=== PATIENT | female | born 1965 | race Two or more races ===

== ENCOUNTER 2017-04-10 08:53 | Emergency (ER) | payer OTHER ==
[~2017-04-10] VITALS: Ht 152.4 cm; Wt 61.2 kg
[2017-04-10] MEDS ORDERED: NKM (09:01)
[2017-04-10 09:12] VITALS: BP 153/83
[2017-04-10] MEDS ORDERED: Tylenol #3 tab (300mg/30mg) ORAL ONE (09:45)
[2017-04-10] MEDS ORDERED: TYLENOL EXTRA500 MG ORAL (10:19)
[2017-04-10 10:37] VITALS: BP 144/78
--- NOTE | 2017-04-10 10:44 | Diagnostic Imaging Report ---
Indications: hip pain Findings: Two views of the left hip were obtained. No acute fracture is demonstrated. Alignment of the hip is within normal limits. Soft tissues are unremarkable. Impression: Negative examination of the hip.
--- NOTE | 2017-04-10 10:47 | Emergency Room Report ---
History of Present Illness General Chief Complaint: Multiple Trauma/Fall Source: Patient Present Illness HPI 51-year-old female presents ED complaining of left hip and buttock pain status post fall. Patient states she tripped and fall today at work. Landing on her buttock. Denies hitting her head or LOC. Patient presents with left hip and buttock pain. 5/10, dull, nonradiating. Denies any other injuries. He is able to walk. No other aggravating relieving factors. Denies any other associated symptoms Allergies: Coded Allergies: IBUPROFEN (Verified Allergy, Unknown, 04/10/17) PENICILLINS (Verified Allergy, Unknown, 04/10/17) Patient History Past Medical History: HTN Past Surgical History: none Pertinent Family History: none Social History: Denies: smoking, alcohol use, drug use Now: No Immunizations: UTD Reviewed Nursing Documentation: PMH: Agreed, PSxH: Agreed Nursing Documentation-PMH Hx Hypertension: Yes Review of Systems All Other Systems: negative except mentioned in HPI Physical Exam Vital Signs Date Time Temp Pulse Resp B/P (MAP) Pulse Ox O2 Delivery O2 Flow Rate FiO2 04/10/17 08:55 97.9 56 16 161/101 99 Room Air Sp02 EP Interpretation: reviewed, normal General Appearance: no apparent distress, alert, GCS 15, non-toxic Head: normocephalic Eyes: bilateral eye normal inspection, bilateral eye PERRL ENT: normal ENT inspection Neck: normal inspection Respiratory: normal inspection Cardiovascular #1: normal inspection Gastrointestinal: normal inspection Rectal: deferred Genitourinary: no CVA tenderness Musculoskeletal: normal range of motion, tender - L buttock/ L hip Neurologic: alert, oriented x3, responsive, motor strength/tone normal, sensory intact, speech normal Psychiatric: normal inspection Skin: normal inspection Lymphatic: normal inspection Medical Decision Making Diagnostic Impression: Primary Impression: Contusion, hip Qualified Codes: S70.02XA - Contusion of left hip, initial encounter Additional Impression: Fall Qualified Codes: W19.XXXA - Unspecified fall, initial encounter ER Course Hospital Course 51-year-old F presents to ED complaining of L hip pain s/p slip and fall Differential diagnoses include: Fracture, dislocation, sprain, contusion Clinical course Patient placed on stretcher. After initial history and physical, I ordered pain medications and Xrays of L hip Xrays prelim read shows no acute fracture/dislocation. On reassessment pain is improved Diagnosis - hip contusion, fall Stable and discharged to home with prescription for Tylenol. apply ice. weight bear as tolerated. Followup with PMD. Return to ED if symptoms recur or worsen Other X-Ray Diagnostic Results Other X-Ray Diagnostic Results : X-Ray ordered: L hip # of Views/Limited Vs Complete: 2 View Indication: Pain EP Interpretation: Yes Interpretation: no dislocation, no soft tissue swelling, no fractures Impression: No acute disease Electronically Signed by: Electronically signed by Matthew Vaughan MD Last Vital Signs Date Time Temp Pulse Resp B/P (MAP) Pulse Ox O2 Delivery O2 Flow Rate FiO2 04/10/17 10:37 98.1 70 18 144/78 99 Room Air Status: improved Disposition: HOME, SELF-CARE Condition: Stable Scripts Acetaminophen* (TYLENOL EXTRA STRENGTH*) 500 Mg Tablet 500 MG ORAL Q8H Y for Prn Headache/Temp > 101, #30 TAB 0 Refills Prov: MATTHEW VAUGHAN M.D. 04/10/17 Departure Forms: Return to Work Return to Work Date: Apr 12, 2017 Work Restrictions: No Heavy Lifting Patient Instructions: Hip Pointer, [id number] MATTHEW VAUGHAN M.D. Apr 10, 2017 10:47
== END 2017-04-10 10:39 | disposition home or self-care (01) ==
LOC: EMR 09:25
DX: S70.02XA Contusion of left hip, initial encounter (principal); W18.40XA Slipping, tripping and stumbling without falling, unspecified, initial encounter; Y93.9 Activity, unspecified; Y92.69 Other specified industrial and construction area as the place of occurrence of the external cause; Y99.9 Unspecified external cause status; M25.552 Pain in left hip; Z88.6 Allergy status to analgesic agent; Z88.0 Allergy status to penicillin; I10 Essential (primary) hypertension
CPT/HCPCS: 73502; 99283; 99284